=== PATIENT | male | born 1980 | race Caucasian/White ===

== ENCOUNTER 2018-03-02 10:57 | Emergency (ER) | payer SELFPAY ==
[2018-03-02] MEDS ORDERED: Sodium Chloride 0.9% 1,000 ML IV ONE (11:20)
[2018-03-02] MEDS ORDERED: Ondansetron 4 MG/2 ML SDV IVPUSH ONE (11:20)
[2018-03-02] MEDS ORDERED: Ketorolac 30 MG/ML SDV IVPUSH ONE (11:20)
--- NOTE | 2018-03-02 11:21 | EDM.PDOC ---
ED HPI GENERAL MEDICAL PROBLEM - General Chief Complaint: Headache Stated Complaint: MIGRANE Time Seen by Provider: 03/02/18 11:12 Source of Information: Reports: Patient History Limitations: Reports: No Limitations - History of Present Illness INITIAL COMMENTS - FREE TEXT/NARRATIVE: HISTORY AND PHYSICAL: History of present illness: Patient is a 37-year-old male who presents to the emergency room today with complaints of a frontal migraine headache. He states he has had this headache for the past 3 days which has not been relieved with [id number] pain medication. Photo phobia and noise sensitivity. Denies any recent head injury, trauma or injury. Denies any visual changes. Patient is also requesting to have his Coumadin refilled. He states he is originally from [place] and sees provider through a coagulation center. Has been taking Coumadin 2 mg daily x 6 days per week, 1mg on day per week. He reports he has some medication left, but will run out soon. Currently does not have a primary care provider here for these refills. He denies any fever, chills, chest pain or shortness of breath. Denies any abdominal pain, nausea, vomiting or diarrhea. Review of systems: As per history of present illness and below otherwise all systems reviewed and negative. Past medical history: As per history of present illness and as reviewed below otherwise noncontributory. Surgical history: As per history of present illness and as reviewed below otherwise noncontributory. Social history: No reported history of drug or alcohol abuse. Family history: As per history of present illness and as reviewed below otherwise noncontributory. Physical exam: General: Well-developed and well-nourished 37-year-old male. Alert and oriented. Nontoxic appearing and in no acute distress. HEENT: Atraumatic, normocephalic, pupils equal and reactive bilaterally, negative for conjunctival pallor or scleral icterus, mucous membranes moist, throat clear, neck supple, nontender, trachea midline. No drooling or trismus noted. No meningeal signs Lungs: Fine expiratory wheezing noted in bases bilaterally, breath sounds equal bilaterally, chest nontender. Heart: S1S2, regular rate and rhythm without overt murmur Abdomen: Soft, nondistended, nontender. Negative for masses or hepatosplenomegaly. Negative for costovertebral tenderness. Pelvis: Stable nontender. Genitourinary: Deferred. Rectal: Deferred. Skin: Intact, warm, dry. No lesions or rashes noted. Extremities: Atraumatic, negative for cords or calf pain. Neurovascular unremarkable. Neuro: Awake, alert, oriented. Cranial nerves II through XII unremarkable. Cerebellum unremarkable. Motor and sensory unremarkable throughout. Exam nonfocal. Notes: Patient is smoker, he declines CXR for the wheezing noted during my exam. Denies any further evaluation/examination other than his migraine headache and INR for his Coumadin refill. Patient refuses the Duo- Neb stating that he needs to get back to [facility]. Will discharge to home with 14 tabs of Coumadin. Patient is here from [facility] (drove himself). He states he has been seen a couple times at [facility] and was unsatisfied with care. He has requested refills for his Coumadin while he was seen during those visits ( states he takes for previous bacterial endocarditis). He states that the medications were refilled but "gave me a hard time". Today INR is 1.83. Education was done on following his PT-INR while taking these medications and the need to establish care with a primary care provider or seeing our Coumadin clinic here at the hospital. He voices understanding and is agreeable to plan of care. He denies any further questions at this time. Diagnostics: INR Therapeutics: IV fluids, Zofran, Toradol, duo neb Impression: Headache Request for medication refill History of Bacterial Endocarditis Plan: 1. Please establish care with a primary care provider at our [facility] . You need a provider to be able to establish care through our Coumadin Clinic and follow your PT/INR lab values. 2. Return to the ED as needed and as discussed. Definitive disposition and diagnosis as appropriate pending reevaluation and review of above. Duration: Day(s): Location: Reports: Head Headache Pain Score (Numeric/FACES): 9 - Related Data Allergies Allergy/AdvReac Type Severity Reaction Status Date / Time daptomycin Allergy Shortness Verified 03/02/18 11:14 of Breath Home Meds: Home Meds Warfarin [Coumadin] 2 mg PO DAILY 03/02/18 [History] ED ROS GENERAL - Review of Systems Review Of Systems: ROS reveals no pertinent complaints other than HPI. - Physical Exam Exam: See Below (See dictation) Course - Vital Signs Last Recorded V/S: Last Vital Signs Temp 98.9 F 03/02/18 11:10 Pulse 98 03/02/18 11:10 Resp 18 03/02/18 11:10 BP 118/62 03/02/18 11:10 Pulse Ox 89 L 03/02/18 11:10 - Orders/Labs/Meds Orders: Active Orders 24 hr Category Date Time Status RT Aerosol Therapy [RC] ASDIRECTED Care 03/02/18 12:18 Active Labs: Laboratory Tests 03/02/18 Range/Units 11:38 INR 1.83 Meds: Medications Discontinued Medications Generic Name Dose Route Start Last Admin Trade Name Freq PRN Reason Stop Dose Admin Albuterol/Ipratropium 3 ml 03/02/18 12:18 03/02/18 12:30 Duoneb 3.0-0.5 Mg/3 Ml NEB 03/02/18 12:19 Not Given ONETIME ONE Sodium Chloride 1,000 mls @ 999 mls/hr 03/02/18 11:20 03/02/18 11:43 Normal Saline IV 03/02/18 12:20 999 mls/hr STAT ONE Administration Ketorolac Tromethamine 30 mg 03/02/18 11:20 03/02/18 11:46 Toradol IVPUSH 03/02/18 11:21 30 mg ONETIME ONE Administration Ondansetron HCl 4 mg 03/02/18 11:20 03/02/18 11:44 Zofran IVPUSH 03/02/18 11:21 4 mg ONETIME ONE Administration Departure - Departure Time of Disposition: 12:17 Disposition: Home, Self-Care 01 Clinical Impression: Encounter for medication refill, History of bacterial endocarditis Headache Qualifiers: Headache type: unspecified Headache chronicity pattern: acute headache Intractability: not intractable Qualified Code(s): R51 - Headache - Discharge Information Instructions: General Headache Without Cause Referrals: [facility] [Outside] PCP,None [Primary Care Provider] - Forms: ED Department Discharge Additional Instructions: The following information is given to patients seen in the emergency department who are being discharged to home. This information is to outline your options for follow-up care. We provide all patients seen in our emergency department with a follow-up referral. The need for follow-up, as well as the timing and circumstances, are variable depending upon the specifics of your emergency department visit. If you don't have a primary care physician on staff, we will provide you with a referral. We always advise you to contact your personal physician following an emergency department visit to inform them of the circumstance of the visit and for follow-up with them and/or the need for any referrals to a consulting specialist. The emergency department will also refer you to a specialist when appropriate. This referral assures that you have the opportunity for follow-up care with a specialist. All of these measure are taken in an effort to provide you with optimal care, which includes your follow-up. Under all circumstances we always encourage you to contact your private physician who remains a resource for coordinating your care. When calling for follow-up care, please make the office aware that this follow-up is from your recent emergency room visit. If for any reason you are refused follow-up, please contact the [facility] Emergency Department at and asked to speak to the emergency department charge nurse. [facility] [address] [place] [address] 1. Please establish care with a primary care provider at our [facility] . You need a provider to be able to establish care through our Coumadin Clinic and follow your PT/INR lab values. 2. Return to the ED as needed and as discussed. - My Orders Last 24 Hours: My Active Orders 03/02/18 12:18 RT Aerosol Therapy [RC] ASDIRECTED - Assessment/Plan Last 24 Hours: My Active Orders 03/02/18 12:18 RT Aerosol Therapy [RC] ASDIRECTED
[2018-03-02] MEDS ORDERED: Albuterol/Ipratropium 3.0-0.5 MG/3 ML Neb Soln NEB ONE (12:18)
== END 2018-03-02 12:45 | disposition home or self-care (01) ==
LOC: MW.ED 10:57
DX: R51 Headache (principal); Z76.0 Encounter for issue of repeat prescription; Z88.1 Allergy status to other antibiotic agents; Z79.01 Long term (current) use of anticoagulants; Z86.79 Personal history of other diseases of the circulatory system
CPT/HCPCS: 36415; 85610; 96361; 96374; 96375; 99284; J1885; J2405; J7040